=== PATIENT | male | born 1965 | race Caucasian/White ===

== ENCOUNTER 2018-08-24 13:04 | Emergency (ER) | payer MEDICAID, OTHER ==
[~2018-08-24] VITALS: Ht 175.3 cm; Wt 70.8 kg
[~2018-08-24 13:04] MED LIST: ASPI-691 PO
[2018-08-24 13:09] VITALS: BP 138/99
--- NOTE | 2018-08-24 16:21 | NUR ---
Patient/Caregiver given discharge instructions and they have confirmed that they understand the instructions. Patient ambulatory with steady gait.
== END 2018-08-24 16:23 | disposition home or self-care (01) ==
LOC: ED 16:15
DX: S16.1XXA Strain of muscle, fascia and tendon at neck level, initial encounter (principal); S40.012A Contusion of left shoulder, initial encounter; S90.02XA Contusion of left ankle, initial encounter; M54.16 Radiculopathy, lumbar region; G89.11 Acute pain due to trauma; M54.42 Lumbago with sciatica, left side; F17.200 Nicotine dependence, unspecified, uncomplicated; V89.0XXA Person injured in unspecified motor-vehicle accident, nontraffic, initial encounter; Y93.89 Activity, other specified; Y92.89 Other specified places as the place of occurrence of the external cause; Y99.8 Other external cause status
CPT/HCPCS: 72125; 99284

== ENCOUNTER 2020-03-25 09:49 | Emergency (ER) | payer SELFPAY ==
[~2020-03-25] VITALS: Ht 175.3 cm; Wt 70.6 kg
--- NOTE | 2020-03-25 10:26 | NUR ---
INITIAL PT CONTACT. PT PRESENTS TO ED C/O RIGHT FLANK AND BACK PAIN. PT STATES HE IS ALSO EXPERIENCING INCREASED FREQUENCY FOR ABOUT 4 DAYS. PT DENIES PAIN WITH URINATION. PT STATES HE HAS ALSO BEEN HAVING NAUSEA IN THE MORNING, DENIES NAUSEA CURRENTLY. PT UPRIGHT ON GURNEY AND ABLE TO PROVIDE URINE SAMPLE. DENIES ANY ADDITIONAL NEEDS AT THIS TIME, CALL LIGHT WITHIN REACH.
[2020-03-25] MEDS ORDERED: KETOROLAC 30 MG/1 ML IM ONE (10:30)
[2020-03-25] MEDS ORDERED: ONDANSETRON ODT 4 MG PO ONE (10:30)
[2020-03-25] MEDS ORDERED: KETOROLAC 30 MG/1 ML ONE (10:31)
[2020-03-25] MEDS ORDERED: ONDANSETRON ODT 4 MG ONE (10:31)
--- NOTE | 2020-03-25 10:40 | NUR ---
PT TO IMAGING PRIOR TO MEDICATING
[2020-03-25 10:50] LABS: BASOPHILS % (AUTO) 1 % (0-1); EOSINOPHILS % (AUTO) 3 % (1-7); LYMPHOCYTES % (AUTO) 24 % (22-44); MEAN CORPUSCULAR HEMOGLOBIN 31.8 pg (27.5-34.5); MEAN CORPUSCULAR HGB CONC 33.3 g/dL (33.2-36.2); MEAN PLATELET VOLUME 8.3 fL (7.4-10.4); MONOCYTES % (AUTO) 9 % (2-9); NEUTROPHILS % (AUTO) 64 % (42-75); PLATELET COUNT 210 x10^3/uL (130-400); RED BLOOD COUNT 5.61 x10^6/uL (4.38-5.82); RED CELL DISTRIBUTION WIDTH 13.6 % (9.4-14.8)
[2020-03-25 10:52] LABS: MICROSCOPIC NOT IND
[2020-03-25 10:54] LABS: MD NO
[2020-03-25 11:01] LABS: ALBUMIN 3.9 g/dL (3.4-5.0); ANION GAP 4 mmol/L (5-15); CHLORIDE 109 mmol/L (98-107); CREATININE 1.09 mg/dL (0.7-1.3)
[2020-03-25 11:05] VITALS: BP 126/96
--- NOTE | 2020-03-25 11:05 | NUR ---
PT SITTING UPRIGHT ON GURNEY USING CELL PHONE, NAD NOTED. PT STATES PAIN IS "ABOUT THE SAME", DENIES ANY ADDITIONAL NEEDS AT THIS TIME. CALL LIGHT WITHIN REACH.
--- NOTE | 2020-03-25 11:32 | NUR ---
Patient given discharge instructions and they have confirmed that they understand the instructions. Patient ambulatory with steady gait.
== END 2020-03-25 11:44 | disposition home or self-care (01) ==
LOC: ED 10:56
DX: S39.012A Strain of muscle, fascia and tendon of lower back, initial encounter (principal); R10.9 Unspecified abdominal pain; F17.210 Nicotine dependence, cigarettes, uncomplicated; X58.XXXA Exposure to other specified factors, initial encounter; Y93.89 Activity, other specified; Y92.89 Other specified places as the place of occurrence of the external cause; Y99.8 Other external cause status
CPT/HCPCS: 36415; 74176; 80048; 81003; 82040; 85025; 96372; 99284; J1885; Q0162

== ENCOUNTER 2020-07-10 05:46 | Emergency (ER) | payer SELFPAY ==
[~2020-07-10] VITALS: Ht 175.3 cm; Wt 75.0 kg
[2020-07-10 05:47] VITALS: BP 138/90
--- NOTE | 2020-07-10 06:01 | NUR ---
pt ambulated to room. on cr monitor, and in gown. MD matti easton.
--- NOTE | 2020-07-10 06:17 | NUR ---
pt ambulated to xray room for a right forearm xray.
== END 2020-07-10 07:47 | disposition home or self-care (01) ==
LOC: ED 06:21
DX: S56.211A Strain of other flexor muscle, fascia and tendon at forearm level, right arm, initial encounter (principal); X58.XXXA Exposure to other specified factors, initial encounter; Y93.89 Activity, other specified; Y92.89 Other specified places as the place of occurrence of the external cause; Y99.8 Other external cause status
CPT/HCPCS: 99283